=== PATIENT | male | born 1960 | race Caucasian/White ===

== ENCOUNTER 2021-02-27 23:54 | Observation (INO) ==
[2021-02-28] MEDS ORDERED: Aspirin 325 MG TABLET PO ONE (00:09)
[2021-02-28 00:30] LABS: Basophils # 0.1 K/mcL (0.0-0.2); Basophils % 0.8 %; Eosinophils # 0.2 K/mcL (0.0-0.6); Eosinophils % 2.4 %; Hemoglobin 13.4 g/dL (12.9-16.9); Immature Granulocytes % 0.2 % (0-4); Lymphocytes # 1.5 K/mcL (0.6-4.6); Lymphocytes % 17.2 %; Mean Corpuscular HGB Conc 35.3 g/dL (31.6-35.5); Mean Corpuscular Volume 82.3 fL (83.0-100.0); Mean Platelet Volume 10.1 fL (9.4-12.4); Monocytes # 0.8 K/mcL (0.0-1.3); Monocytes % 9.3 %; Platelet Count 187 K/mcL (140-400); Red Blood Count 4.62 M/mcL (4.19-5.50); Red Cell Distribution Width 12.1 % (11.5-14.5); Segmented Neutrophils % 70.1 %; White Blood Count 8.5 K/mcL (4.3-11.1)
[2021-02-28] MEDS ORDERED: *HR* Metoprolol 5 MG/5 ML VIAL IVP ONE (00:31)
[2021-02-28 00:47] LABS: INR 1.1; Prothrombin Time 12.3 Seconds (9.4-12.1)
[2021-02-28 01:20] LABS: BUN/Creatinine Ratio 20 (6-26); Blood Urea Nitrogen 22 mg/dL (8-23); Calcium 8.9 mg/dL (8.6-10.3); Carbon Dioxide 25 mEq/L (23-29); Chloride 106 mEq/L (98-107); Glucose 109 mg/dL (70-105); Magnesium 2.3 mg/dL (1.6-2.6); Osmolality,Calculated 292 (280-300); Potassium 3.7 mEq/L (3.5-5.1); Sodium 139 mEq/L (136-145); Thyroid Stimulating Hormone 1.342 mcIU/mL (0.340-5.600); Troponin I < 0.03 ng/mL (< 0.04); eGFR For African Americans > 60 (> 60); eGFR For Non-African Americans > 60 (> 60)
[2021-02-28] MEDS ORDERED: 0.9 % Sodium Chloride 500 ML IVC STA (01:38)
[2021-02-28 03:11] LABS: Amphetamine Screen,Urine Negative ng/mL (Cutoff=1000); Barbiturate Screen,Urine Negative ng/mL (Cutoff=200); Benzodiazepines Screen,Urine Negative ng/mL (Cutoff=200); Cannabinoid Screen,Urine Negative ng/mL (Cutoff = 50); Cocaine Screen,Urine Negative ng/mL (Cutoff= 300); Opiate Screen,Urine Negative ng/mL (Cutoff=300); Phencyclidine Screen,Urine Negative ng/mL (Cutoff=25)
[2021-02-28] MEDS ORDERED: Perflutren Lipid Microsphere 1.3 ML in 0.9 % Sodium Chloride 8.7 ML IVP PRN (03:27)
[2021-02-28] MEDS ORDERED: Ondansetron 4 MG/2 ML VIAL IVP PRN (03:28)
[2021-02-28] MEDS ORDERED: Naloxone 0.4 MG/ML INJ IVP PRN (03:28)
[2021-02-28] MEDS ORDERED: Melatonin 3 MG TABLET PO PRN (03:28)
[2021-02-28] MEDS ORDERED: LEVODOPA 42 MG IH PRN ×2 (04:13→09:47)
[2021-02-28] MEDS: Carbidopa/Levodopa 25/100 TABLET PO SCH ×3 (05:37→10:23)
[2021-02-28] MEDS ORDERED: *HR* Heparin 5,000 UNIT/ML VIAL SQ SCH (06:00)
[2021-02-28] MEDS ORDERED: ROTIGOTINE TP SCH (09:00)
[2021-02-28] MEDS ORDERED: ROTIGOTINE 2 MG/24 HR TP SCH (10:00)
[2021-02-28] MEDS ORDERED: Carbidopa/Levodopa 25/100 TABLET PO SCH (10:30)
[2021-02-28] MEDS ORDERED: STALEVO PO SCH ×2 (11:15→13:00)
[2021-02-28 11:55] VITALS: BP 95/58; PULSE 69; TEMP 98.2; O2SAT 96
[2021-02-28] MEDS ORDERED: DilTIAZem CD (24hr) 120 MG CAP.ER.24H PO SCH (12:00)
== END 2021-02-28 16:06 | disposition home or self-care (01) ==
LOC: 3NENU 23:54 → EMEROOARM 23:54 → SUATTDRO 02-28 02:41 → 3NENU 02-28 03:19
PROVIDERS: ADMIT Internal Medicine; ATTEND Internal Medicine